=== PATIENT | female | born 1970 | race Hispanic/Latino ===

== ENCOUNTER 2021-08-18 06:55 | Day surgery (SDC) | payer OTHER ==
[2021-08-16 14:53] LABS: BASOPHILS % (AUTO) 0.5 % (0.0-5.0); EOSINOPHILS % (AUTO) 1.4 % (0.0-8.0); HEMATOCRIT 41.2 % (36-48); LYMPHOCYTES % (AUTO) 32.1 % (21.0-51.0); MEAN CORPUSCULAR HEMOGLOBIN 27.8 pg (27.0-33.0); MEAN CORPUSCULAR HGB CONC 33.5 g/dL (32.0-36.0); MEAN CORPUSCULAR VOLUME 83.1 fL (79-99); MONOCYTES % (AUTO) 6.4 % (3.0-13.0); NEUTROPHILS % (AUTO) 59.4 % (40.0-77.0); PLATELET COUNT (AUTO) 212 K/uL (130-400); RED BLOOD CELL COUNT(AUTO) 4.96 MIL/uL (4.00-5.50); RED CELL DISTRIBUTION WIDTH 13.2 % (11.0-15.5); WHITE BLOOD COUNT (AUTO) 5.9 K/uL (4.8-10.8)
[2021-08-17 08:49] VITALS: BP 185/90
[~2021-08-18] VITALS: Ht 152.4 cm; Wt 98.1 kg
[2021-08-18] VITALS (16 sets, daily range): BP systolic 129–153; BP diastolic 71–92
[~2021-08-18 06:55] MED LIST: CALDOLOR 800MG+NS 250ML 250 ML IV SCH; CARB6TAB PO; CEFAZOLIN SODIUM 1 GM VIAL IVP SCH; CHOL200013 PO; LACTATED RINGERS 1000ML 1,000 ML IV SCH; LOSA25TA41 PO; METO-391 PO; SIMV10TA97 PO; VITAD50000 PO
[2021-08-18] MEDS ORDERED: LIDOCAINE PF 100MG/5ML (2%) SYRINGE 5ML ONE (07:56)
[2021-08-18] MEDS ORDERED: ROCURONIUM 10MG/1ML SYR 10 MG/ML ML ONE (07:56)
[2021-08-18] MEDS ORDERED: PROPOFOL 10 MG/ML 20ML VIAL IV ONE (07:56)
[2021-08-18] MEDS ORDERED: MEPERIDINE-PF 25 MG/ML SYG ONE ×2 (07:57→09:10)
[2021-08-18] MEDS ORDERED: FENTANYL CITRATE PF 50 MCG/1 ML 2ML VIAL ONE (07:57)
[2021-08-18] MEDS ORDERED: ONDANSETRON 4MG INJ ONE (07:57)
== END 2021-08-18 10:35 | disposition home or self-care (01) ==
LOC: DAH 06:55
PROVIDERS: ATTEND Obstetrics & Gynecology
DX: N95.0 Postmenopausal bleeding (principal); N85.4 Malposition of uterus; Z20.822 Contact with and (suspected) exposure to COVID-19; Z98.890 Other specified postprocedural states; Z79.899 Other long term (current) drug therapy; Z82.49 Family history of ischemic heart disease and other diseases of the circulatory system; Z72.89 Other problems related to lifestyle
CPT/HCPCS: 36415; 58563; 85025; 86850; 86900; 86901; 87635 ×2; A4215; A4221; A4222; A4223; A4351; A4355; A4600; A4663; C9803; J0690; J1741; J2001; J2175 ×2; J2405; J2704; J7030 ×2; J7120; J3010